=== PATIENT | female | born 1990 ===

== ENCOUNTER 2023-05-11 13:12 | Outpatient (REF) | payer MEDICAID, OTHER, SELFPAY ==
[2023-05-16 04:24] LABS: HPV mRNA E6/E7 rflx Not Detected (Not Detected)
== END 2023-05-11 13:13 | disposition home or self-care (01) ==
LOC: HO.HHCLNP 13:12
PROVIDERS: Visit Provider Advanced Practice Midwife
DX: Z01.419 Encounter for gynecological examination (general) (routine) without abnormal findings (principal)
CPT/HCPCS: 87624; 88142

== ENCOUNTER 2024-01-10 12:43 | Emergency (ER) | payer MEDICAID, OTHER, SELFPAY ==
[2024-01-10 12:57] VITALS: BP 109/69; PULSE 79; RESP 19; TEMP 36.6; O2SAT 98; BMI 23.1
--- NOTE | 2024-01-10 12:57 | ED_ITS ---
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 (all interactions with this patient were facilitated with an [facility] enterprise architect manager.) Mode of arrival: ambulatory Limitations: language barrier (all interactions with this patient were facilitated with an [facility] enterprise architect manager.) History of Present Illness ED Provider: Yessica Ching PA-C HPI Narrative: Patient is a 33 year old assigned female at with a history of vaginal delivery in 2019 in [facility] presenting to the emergency department today with left lower vaginal pain and bleeding. Patient states that she shaved yesterday and noticed last night that she was bleeding from her lower vaginal area and is having pain. Patient states that she had an episiotomy in 2019 and is concerned they closed her up incorrectly. Patient states that she does not have an OBGYN in the area. Patient denies any dizziness, lightheadedness, abdominal pain, nausea, vomiting, fever, chills, blurry vision, double vision, loss of vision, chest pain, difficulty breathing, shortness of breath, back pain, night sweats, pain with urination, increased urinary frequency, increased urinary urgency, blood in her stool, syncope or a near syncopal episode, recent trauma or falls, bowel incontinence, bladder incontinence, or any other complaints at this time. Exacerbating factors: none Relieving factors: none Related Data Previous Rx's ?Medication ?Instructions ?Recorded cefuroxime axetil 250 mg tablet 250 mg PO BID 7 days #14 tabs 01/10/24 Allergies Allergy/AdvReac Type Severity Reaction Status Date / Time sulfamethoxazole Allergy Hives Verified 01/10/24 13:00 [From Bactrim] trimethoprim [From Bactrim] Allergy Hives Verified 01/10/24 13:00 Review of Systems 2 Constitutional: Constitutional: Reports no additional constitutional complaints, Denies chills, Denies fever(s) and Denies night sweats Eyes: Eyes: Reports no additional eye complaints, Denies blurry vision, Denies change in vision, Denies diplopia, Denies eye discharge, Denies loss of vision and Denies eye pain ENT: Denies dizziness Cardiovascular: Cardiovascular: Reports no additional cardiovascular complaints, Denies chest pain, Denies lightheadedness, Denies Loss of Consciousness and Denies dyspnea Respiratory: Respiratory: Reports no additional respiratory complaints and Denies dyspnea Gastrointestinal: Gastrointestinal: Reports no additional gastrointestinal complaints, Denies abdominal pain, Denies melena, Denies hematochezia, Denies change in bowel habits and Denies change in stool character Genitourinary: Genitourinary: Denies urinary frequency, Denies dysuria, Denies urinary incontinence, Denies urinary hesitancy and Denies urinary urgency C omments: vaginal bleeding, left sided lower vaginal pain Musculoskeletal: Musculoskeletal: Reports no additional musculoskeletal complaints, Denies numbness and Denies tingling Neurologic: Denies dizziness, Denies loss of vision, Denies numbness and Denies tingling Psychiatric: Psychiatric: Reports no additional psychiatric complaints Endocrine: Endocrine: Reports no additional endocrine complaints Hematologic/Lymphatic: Hematologic/Lymphatic: Reports no additional hematologic/lymphatic complaints Allergic/Immunologic: Allergic/Immunologic: Reports no additional allergic/immunologic complaints PMFSH Past Medical History Attestation statement: The following information was validated with the patient. Source: old records reviewed and nursing notes reviewed Social History Social History Smoked in Last 30 Days: No Use of substances other than those prescribed or required for medical reasons: No Advance Directives: No Advance Directives Information Provided: No Do you have a plan to hurt others: No Plan Physical Exam 2 Vital Signs: Vital Signs: Last Vital Signs Temp 97.6 F 01/10/24 18:02 Pulse 81 01/10/24 18:02 Resp 18 01/10/24 18:02 BP 113/69 01/10/24 18:02 Pulse Ox 100 01/10/24 18:02 O2 Del Method Room Air 01/10/24 18:02 BMI result Body Mass Index 23.1 Const: General: cooperative, no acute distress, alert and awake Nutritional Appearance: well nourished Orientation/consciousness: patient oriented x3 Limitations: no limitations HEENT: Head: Yes normal to inspection and Yes atraumatic Ears: hearing grossly normal bilaterally and external ears normal General nose exam: Normal external nose present, no nasal discharge noted and no epistaxis Face and sinus: Yes normal facial exam, No abrasion and No laceration Mouth: Normal oral and palatal mucosa present, no drooling and no muffled voice Eyes: General: appearance normal, both eyes and all related structures P eriorbital: periorbital findings normal Eyelids: Yes eyelids normal C onjunctivae: conjunctivae normal Pupils: Equal, round and reactive pupils present EOM: EOMs intact bilaterally Neck: Neck: Yes normal visual inspection, Yes full ROM and Yes no lymphadenopathy Chest: Chest palpation & inspection: normal inspection of the chest Resp: Effort & Inspection: normal respiratory effort and able to speak in complete sentences GI: Inspection: Yes normal to inspection : Other: abrasion vs. lesion present to the left lower inner vaginal lips with small amounts of blood noted in the underwear Neuro: General: patient oriented x3 and moves all extremities Cranial nerves: Yes Equal, round and reactive pupils present Cognition (Neuro): n ormal cognition Extrem: General: Yes normal to inspection, Yes full ROM and Yes capillary refill normal Psych: Appearance: grossly normal Mental Status: mental status grossly normal Affect: normal affect Attitude: cooperative Thought process: N ormal thought process present Thought content: Normal thought content present Insight: Good insight present (Psych) Course Course Course Narrative: This is a Rapid Medical Examination (RME) performed by Krish Olmstead PA-C in triage. Full HPI, ROS, assessment and treatment plan per primary provider in the Main ED. 33 yo female hx of episiotomy during vaginal 5 yrs ago here for eval of vaginal bleeding since last night. believes the incision from 5 years ago re- opened while shaving her vaginal area in the shower last night. endorses assoc burning pain. she initially thought she was on her period but states this feels different. LMP 06/2022 after placement of nexplanon. denies chance of preg. no thinners. + area not examined in triage Plan: basic labs, hcg, UA Medical Decision Making Medical Decision Making MDM Narrative: Patient is a 33 year old assigned female at with a history of vaginal delivery in 2019 in [facility] presenting to the emergency department today with left lower vaginal pain and bleeding. Patient's physical exam was as noted in the physical exam portion of this note. Patient's lesion is not a laceration and does not require manual closure. Patient's blood work was unremarkable. Patient's urine showed a possible UTI, given her presentation - will treat. I spoke to Dr. Sagastume who agreed to see the patient in clinic on 01/11/2024. I explained my physical exam findings as well as all test results to the patient. I answered all questions asked by the patient. I stressed the importance of the patient taking her medication as directed (either prescribed or as the over the counter packaging recommends). I stressed the importance of the patient following up with her primary care provider and with Dr. Sagastume on 01/11/2024. I stressed the importance of the patient returning to the emergency department immediately if her symptoms were to worsen or if she were to develop any dizziness, shortness of breath, difficulty breathing, chest pain, blurry vision, loss of vision, nausea, vomiting, abdominal pain, fever, chills, back pain, or any other complaints. Patient verbalized agreement and understanding with this treatment plan and discharge. Differential Diagnosis Differential Diagnoses: The differential diagnosis associated with the presentation includes UTI Vaginal bleeding Abnormal vaginal lesion Admission/Observation Consideration of admission/observation: Escalation of care including admission/observation considered Patient would have been admitted to the hospital had her work up had any findings where hospital admission was appropriate and her clinical presentation warranted hospital admission. Consult Healthcare Provider Management of the patient was discussed with: Software Recruiter (spoke to Dr. Sagastume as noted in the MDM Rationale portion of this note.) Lab Data [facility] Lab Attestation statement: I reviewed the patient's lab results. My interpretation of these results are in the MDM Rationale portion of this note. 01/10/24 15:48 01/10/24 15:48 Labs: Lab Results 01/10/24 01/10/24 01/10/24 Range/Units 15:48 16:17 17:05 WBC 7.2 (4.8-10.8) X10*3/uL RBC 4.32 (4.20-5.50) X10*6/uL Hgb 13.4 (12.0-16.0) g/dl Hct 40.7 (37.0-47.0) % MCV 94.2 (80.0-98.0) fL MCH 31.0 (27.0-33.0) pg MCHC 32.9 (31.0-35.0) g/dl RDW 12.3 (11.0-16.0) % Plt Count 253 (160-400) X10*3/uL MPV 10.4 (9.4-12.3) fL Immature Gran % (Auto) 0.3 (0.0-0.4) % Neut % (Auto) 58.3 (45-73) % Lymph % (Auto) 32.2 (20-40) % Thayer % (Auto) 6.8 (2-11) % Eos % (Auto) 2.1 (0-4) % Baso % (Auto) 0.3 (0-2) % Lymph # (Auto) 2.3 (1.2-4.9) X10*3/uL Thayer # (Auto) 0.5 (0.1-1.2) X10*3/uL Eos # (Auto) 0.2 (0.0-0.4) X10*3/uL Baso # (Auto) 0.0 (0.0-0.2) X10*3/uL Abs Immat Gran (auto) 0.02 (0.00-0.03) X10*3/uL Absolute Neuts (auto) 4.2 (2.0-8.3) x10*3/uL Absolute Nucleated RBC 0.000 (0.0-0.012) X10*3/uL Nucleated RBC % (auto) 0.0 (0.0-0.2) /100WBC Sodium 142 (135-145) mmol/L Potassium 4.3 (3.3-5.1) mmol/L Chloride 107 (96-108) mmol/L Carbon Dioxide 27 (22-29) mmol/L Anion Gap 12 (12-20) BUN 13 (9-16) mg/dL Creatinine 0.82 (0.5-1.4) mg/dL Estim Creat Clear Calc 98.4 Estimated GFR > 60 Random Glucose 93 (60-115) mg/dL Calcium 9.3 (8.4-10.2) mg/dL Total Bilirubin 0.8 (0.0-1.0) mg/dL AST 17 (5-31) U/L ALT 13 (0-31) U/L Alkaline Phosphatase 53 (39-117) U/L Total Protein 7.6 (6.5-8.0) g/dL Albumin 4.4 (3.5-5.0) g/dL Beta HCG, Quant < 2 mIU/mL Urine Color Yellow Urine Appearance Cloudy Urine pH 6.0 (5.0-9.0) Ur Specific [place] 1.020 (1.005-1.025) Urine Protein Negative (Neg-Trace) mg/dL Urine Glucose (UA) Negative (Negative) mg/dL Urine Ketones Trace (Negative) mg/dL Urine Blood Large (3+) H (Negative) Urine Nitrite Positive H (Negative) Ur Leukocyte Esterase Small (1+) H (Negative) Urine RBC 11-20 H (0-2) /HPF Urine WBC 6-10 H (0-5) /HPF Ur Squamous Epith Cells 11-20 (0-2) /HPF Urine Bacteria 4+ (None Seen) Hyaline Casts 0-2 (0-2) /LPF Urine Test NEGATIVE (NEGATIVE) Chlam trachomat DNA PCR NOT DETECTED (Not Detect.) N.gonorrhoeae DNA (PCR) NOT DETECTED (Not Detect.) Prescription Management I considered prescription management with: Antibiotic (patient prescribed an antibiotic for possible UTI) Discharge Plan Discharge Clinical Impression: Avulsion of skin, UTI (urinary tract infection) Patient Disposition: Home, Self-Care Instructions: Urinary Tract Infection in Women (DC), Skin Avulsion (ED) Additional Instructions: You MUST follow up with an OBGYN. Take your medication as prescribed. Leave the affected area alone. Follow up with your primary care provider. Return to the emergency department immediately if your symptoms worsen or if you develop any dizziness, shortness of breath, difficulty breathing, chest pain, blurry vision, loss of vision, nausea, vomiting, abdominal pain, fever, chills, back pain, or any other complaints. DEBE hacer un seguimiento con un ginec?logo obstetra. Shields la medicaci?n moise y amira se le mccarty recetado. Deje en bartlett la ramu afectada. Consulte a suarez m?dico de cabecera. Acuda inmediatamente al servicio de urgencias si eliza s?ntomas empeoran o si presenta mareos, falta de aliento, dificultad para respirar, dolor tor?cico, visi?n borrosa, p?rdida de visi?n, n?useas, v?mitos, dolor abdominal, fiebre, escalofr?os, dolor de espalda o cualquier otra molestia. Prescriptions: New cefuroxime axetil 250 mg tablet 250 mg PO BID 7 Days Qty: 14 0RF Referrals: [facility] Family Medicine [Provider Group] (Call to establish and follow up with a primary care provider. If you already have a primary care provider, please follow up with them. Llame para establecer y hacer un seguimiento con un proveedor de atenci?n primaria. Si ya tiene un proveedor de atenci?n primaria, mare un seguimiento con ?l.) [facility] [Provider Group] (Call to establish and follow up with a primary care provider. If you already have a primary care provider, please follow up with them. Llame para establecer y hacer un seguimiento con un proveedor de atenci?n primaria. Si ya tiene un proveedor de atenci?n primaria, mare un seguimiento con ?l.) [facility] Primary [facility] [Provider Group] (Call to establish and follow up with a primary care provider. If you already have a primary care provider, please follow up with them. Llame para establecer y hacer un seguimiento con un proveedor de atenci?n primaria. Si ya tiene un proveedor de atenci?n primaria, mare un seguimiento con ?l.) Gaurav Sagastume MD [Physician] - (Call the morning of 01/11/2024 (TOMORROW) and ask for Carolina. They are expecting your call and will get you into the office TOMORROW (01/11/2024). Llame la ma?teofilo del 11/01/2024 (MA?TEOFILO) y pregunte por Carolina. Est?n esperando tu llamada y te llevar?n a la oficina MA?TEOFILO (11/01/2024). ) Stand Alone Forms: Work/School Release Interventions: ED Discharge Assessment Last Done: 01/10/24 18:02 Discharge Date/Time: 01/10/24 18:02 Print Language: Frisian
[2024-01-10 15:55] LABS: MANUAL DIFF FLAG NO
[2024-01-10 15:58] LABS: Basophils Percent Auto 0.3 % (0-2); Eosinophils Absolute Auto 0.2 X10*3/uL (0.0-0.4); Eosinophils Percent Auto 2.1 % (0-4); Hematocrit 40.7 % (37.0-47.0); Hemoglobin 13.4 g/dl (12.0-16.0); Imm Gran Abs Auto 0.02 X10*3/uL (0.00-0.03); Imm Gran Pct Auto 0.3 % (0.0-0.4); Lymphocytes Absolute Auto 2.3 X10*3/uL (1.2-4.9); Lymphocytes Percent Auto 32.2 % (20-40); Mean Corpuscular HGB Conc 32.9 g/dl (31.0-35.0); Mean Corpuscular Volume 94.2 fL (80.0-98.0); Mean Platelet Volume 10.4 fL (9.4-12.3); Monocytes Absolute Auto 0.5 X10*3/uL (0.1-1.2); Monocytes Percent Auto 6.8 % (2-11); Neutrophils Absolute Auto 4.2 x10*3/uL (2.0-8.3); Neutrophils Percent Auto 58.3 % (45-73); Platelet Count 253 X10*3/uL (160-400); Red Blood Count 4.32 X10*6/uL (4.20-5.50); Red Cell Distribution Width 12.3 % (11.0-16.0); White Blood Count 7.2 X10*3/uL (4.8-10.8)
[2024-01-10 16:23] LABS: Alanine Aminotransferase 13 U/L (0-31); Albumin Level 4.4 g/dL (3.5-5.0); Alkaline Phosphatase 53 U/L (39-117); Anion Gap 12 (12-20); Aspartate Amino Transferase 17 U/L (5-31); Bilirubin Total 0.8 mg/dL (0.0-1.0); Blood Urea Nitrogen 13 mg/dL (9-16); Calcium 9.3 mg/dL (8.4-10.2); Carbon Dioxide 27 mmol/L (22-29); Chloride 107 mmol/L (96-108); Creatinine Clr Calc Pharmacy 98.4; Estimated Glomerular Filt Rate > 60; Glucose Random 93 mg/dL (60-115); Potassium 4.3 mmol/L (3.3-5.1); Sodium 142 mmol/L (135-145); Total Protein 7.6 g/dL (6.5-8.0)
[2024-01-10 16:29] LABS: Appearance Urine Cloudy; Color Urine Yellow; Glucose Urine UA Negative (Negative); Leukocyte Esterase Urine Small (1+) (Negative); Nitrite Urine Positive (Negative); UMIC TRIGGER UACC YES; Urine Blood Large (3+) (Negative); Urine Ketones Trace mg/dL (Negative); Urine Protein Negative (Neg-Trace)
[2024-01-10 16:29] LABS: HCG Quantitative < 2 mIU/mL
[2024-01-10 16:31] LABS: UPreg QC Valid YES; Urine Pregnancy NEGATIVE (NEGATIVE)
[2024-01-10 16:34] VITALS: BP 113/69; PULSE 81; RESP 18; TEMP 36.4; O2SAT 100
[2024-01-10 16:35] LABS: Bacteria Urine 4+ (None Seen); Hyaline Casts Urine 0-2 /LPF (0-2); UACC Culture Trigger YES
--- NOTE | 2024-01-10 17:57 | PC.NURSE ---
karley made aware of DC instructions aware she has to call [facility] women services tomorrow and make an appointment.
[2024-01-10 18:02] VITALS: BP 113/69; PULSE 81; RESP 18; TEMP 36.4; O2SAT 100
[2024-01-11 03:54] LABS: CT PCR NOT DETECTED (Not Detect.); NG PCR NOT DETECTED (Not Detect.)
[2024-01-11 11:28] LABS: Bacterial Vaginosis PCR POSITIVE (Negative); Candida Group PCR NOT DETECTED (Not Detect); Candida glab krusei PCR NOT DETECTED (Not Detect); Trichomonas vaginalis PCR NOT DETECTED (Not Detect)
== END 2024-01-10 18:02 | disposition home or self-care (01) ==
PROVIDERS: Physician Assistant Medical; Emergency Provider Emergency Medicine
DX: S31.104A Unspecified open wound of abdominal wall, left lower quadrant without penetration into peritoneal cavity, initial encounter (principal); W27.8XXA Contact with other nonpowered hand tool, initial encounter; R10.2 Pelvic and perineal pain; Y93.E8 Activity, other personal hygiene; Y92.012 Bathroom of single-family (private) house as the place of occurrence of the external cause; Y99.9 Unspecified external cause status
CPT/HCPCS: 0352U; 36415; 80053; 81001; 81025; 84702; 85025; 87086; 87088; 87186; 87491; 87591; 99283; 99284

== ENCOUNTER 2024-01-11 10:35 | Outpatient (AMB) | payer SELFPAY ==
[2024-01-11 11:03] VITALS: BP 100/60; BMI 22.8
--- NOTE | 2024-01-11 11:03 | A.OFFVIS_ITS ---
Vital Signs 01/11/24 11:03 Height 5 ft 8 in Weight 150 lb BMI 22.8 BP 100/60 Intake Visit Reasons: Er follow up per Cushion Cover Inspector Required: Yes Cushion Cover Inspector Language: Telemetry Nurse Services: Cushion Cover Inspector Present (in person) Cushion Cover Inspector Name: Lita JACOB Information Interpreted: non-clinical & clinical Mechanical System Technician: Mechanical System Technician Present (Lita JACOB) Accompanied by: Self / Same As Patient Allergies sulfamethoxazole [From Bactrim] Allergy (Verified 01/11/24 11:04) Hives trimethoprim [From Bactrim] Allergy (Verified 01/11/24 11:04) Hives Is last menstrual period known: Yes Last menstrual period: 01/09/24 HPI Comments Details: Presenting complaining of perineal pain started after intercourse 4 days ago no other associated PFSH Surgical History Hx of tonsillectomy Social History Household Members Other:: daughter Housing Other:: nursing home Alcohol intake: current Alcohol intake frequency: a few times a month Patient Tobacco Use Status: Never used Tobacco Current occupational status: unemployed Sexually active: No Sexual orientation: Straight/Heterosexual Gender identity: Female Female Reproductive History Menstrual Date of last menstrual period: 01/09/24 Total pregnancies: 3 Full term: 2 Number of Living Children: 2 Ab spontaneous: 1 Review of Systems Const All systems reviewed & are unremarkable except as noted in HPI and below Physical Exam Vital Signs: Last Vital Signs BP 100/60 01/11/24 11:03 BMI result Body Mass Index 22.8 General: Yes no CVA tenderness External Female Exam: normal appearance of the urethra and other (Posterior fourchette superficial laceration at the site of episiotomy) Speculum Exam - Vagina: normal appearance of the vagina, normal palpation, no lesions and no masses Speculum Exam - Cervix: normal appearance of the cervix, normal palpation, no lesions, no masses and nontender Bimanual exam- vagina & uterus: normal bimanual exam, normal palpation, uterine size normal, normal palpation, uterine shape normal, No Cervical tenderness present and non-tender Bimanual Exam- Adnexa, other: normal adnexae Back/Spine/Pelvis Back: no CVA tenderness Assessment & Plan Assessment & Plan (1) Perineal laceration involving skin: Code(s): S31.41XA - Laceration without foreign body of vagina and vulva, initial encounter Category: Medical Plan: GC/CT with BV panel collected Laceration wound culture and herpes culture taken Augmentin 875 p.o. b.i.d. for 7 days given to the patient Wet and dry gauzes and Sitz baths recommended the patient Instructions given the patient to call in case of worsening of the pain, discharge, fever change in skin color otherwise schedule a 2 week follow-up appointment for reinspection Medications: New amoxicillin-pot clavulanate 875-125 mg 1 tab PO BID 7 days 14 tabs 0RF Coding Level of Care Code New Pt Level 3 (38950) Diagnoses Perineal laceration involving skin S31.41XA
== END 2024-01-11 11:24 | disposition home or self-care (01) ==
LOC: HO.HWS 10:35
PROVIDERS: Visit Provider Obstetrics & Gynecology
DX: S31.41XA Laceration without foreign body of vagina and vulva, initial encounter (principal)
CPT/HCPCS: 99203

== ENCOUNTER 2024-01-11 11:26 | Outpatient (REF) | payer MEDICAID, OTHER, SELFPAY | END 2024-01-11 11:27 | disposition home or self-care (01) | LOC: HO.LAB 11:26 | PROVIDERS: Visit Provider Obstetrics & Gynecology | DX: Z13.89 Encounter for screening for other disorder (principal) ==

== ENCOUNTER 2025-02-04 12:46 | Emergency (ER) | payer MEDICAID, SELFPAY ==
--- NOTE | ~2025-02-04 | CT_ITS ---
CLINICAL HISTORY: left flank pain, hx of stones CT abdomen and pelvis without contrast Comparison: None provided Findings: The lung bases are clear. The liver, spleen, pancreas, bilateral adrenal glands and right kidney without acute abnormality or focal lesions. Gallbladder nondistended. Tiny radiopaque gallstone within the gallbladder lumen. There is a nearly 4 mm stone in the distal left ureter a few cm proximal to the left ureterovesical junction, axial image 68, series 3, coronal image 39. This results in mild left-sided hydroureteronephrosis. Few additional punctate nonobstructive bilateral intrarenal stones are noted. The stomach and bowel loops are not dilated. There are no focal colonic lesions or pneumatosis. There is no mesenteric inflammation. The appendix is normal. No free fluid, collections or free air. The aorta normal in caliber No abdominopelvic lymphadenopathy. The bladder is normal. Uterus slightly prominent although without gross focal lesions. There are no adnexal lesions. There is no acute soft tissue or skeletal abnormality in the abdomen or pelvis. There are no skeletal lesions. IMPRESSION: A 4 mm stone in the distal left ureter, resulting in mild left-sided hydroureteronephrosis. The examination is otherwise unremarkable. This document has been electronically signed by: Luis Pichardo MD on 02/04/2025 19:14:56
[2025-02-04 13:01] VITALS: BP 119/58; PULSE 70; RESP 20; TEMP 36.3; O2SAT 100
--- NOTE | 2025-02-04 13:02 | ED.GENADULT ---
HPI - General Adult General Chief complaint: Abdominal Pain Stated complaint: Urinary Symptoms Time Seen by Provider: 02/04/25 18:09 Source: patient Mode of arrival: ambulatory Limitations: no limitations History of Present Illness ED Provider: DR. Can HPI narrative: 34-year-old female history of kidney stones presented with left flank pain radiates down to the left groin area, dysuria, urge to urinate, no blood in the urine, no fever, no chills, no nausea, no vomiting. Normal bowel movement this morning, +passing gas, no blood in the stool. Related Data Previous Rx's ?Medication ?Instructions ?Recorded cefuroxime axetil 250 mg tablet 250 mg PO BID 7 days #14 tabs 01/10/24 amoxicillin 875 mg-potassium 1 tab PO BID 7 days #14 tabs 01/11/24 clavulanate 125 mg tablet cefuroxime axetil 250 mg tablet 250 mg PO BID #14 tabs 02/04/25 ibuprofen 600 mg tablet 600 mg PO Q8H PRN pain #10 tabs 02/04/25 oxycodone 5 mg tablet 5 mg PO BID PRN pain #7 tabs 02/04/25 Allergies Allergy/AdvReac Type Severity Reaction Status Date / Time sulfamethoxazole (From Allergy Hives Verified 02/04/25 13:04 Bactrim) trimethoprim (From Bactrim) Allergy Hives Verified 02/04/25 13:04 Review of Systems Review of Systems: All other systems are reviewed and are negative Constitutional: Reports as per HPI and Reports no additional constitutional complaints Eyes: Reports as per HPI and Reports no additional eye complaints Reports system reviewed and no additional complaints, except as documented Cardiovascular: Reports as per HPI and Reports no additional cardiovascular complaints Respiratory: Reports as per HPI and Reports no additional respiratory complaints Gastrointestinal: Reports as per HPI and Reports no additional gastrointestinal complaints Genitourinary: Reports no additional female genitourinary complaints Musculoskeletal: Reports no additional musculoskeletal complaints Skin/Breast: Reports system reviewed and no additional complaints, except as docu Psychiatric: Reports no additional psychiatric complaints Endocrine: Reports no additional endocrine complaints Hematologic/Lymphatic: Reports no additional hematologic/lymphatic complaints Allergic/Immunologic: Reports no additional allergic/immunologic complaints Reports system reviewed and no additional complaints, except as documented and Reports Abnormal speech present [facility] Past Medical History Surgical History Hx of tonsillectomy Social History Social History Household Members Other:: daughter Housing Other:: penitentiary Alcohol intake: current Alcohol intake frequency: a few times a month Patient Tobacco Use Status: Never used Tobacco Smoked in Last 30 Days: No Use of substances other than those prescribed or required for medical reasons: No Advance Directives: No Advance Directives Information Provided: Yes Do you have a plan to hurt others: No Plan Patient : No Current occupational status: unemployed Sexual orientation: Straight/Heterosexual Gender identity: Female Physical Exam ED Vital Signs: Vital Signs - 24 hr 02/04/25 13:01 02/04/25 18:52 Temperature 97.3 F 97.2 F Pulse Rate 70 58 Respiratory Rate 20 14 Blood Pressure 119/58 L 116/72 Pulse Oximetry 100 99 Oxygen Delivery Method Room Air Room Air BMI result Body Mass Index 30.0 Vital signs have been reviewed and appear to be correct. Blood pressure elevated. Heart rate normal. Respiratory rate normal. Temperature normal. Oxygen saturation normal. Appearance: Alert. Oriented X3. No acute distress. Head: Normal external exam. Normocephalic. Atraumatic. No Nguyen signs noted. No raccoon eyes noted Eyes: PERRLA. EOMI. Conjunctiva and sclera normal. Eyelids normal. ENT: TM's Normal. Pharynx normal. Uvula midline. Moist mucous membranes. No trismus noted. No drooling noted. No muffled voice noted. Neck: Normal inspection. Neck supple. FROM. No adenopathy. Thyroid Normal. No meningeal signs. No neck mass noted. CVS: Normal heart rate and rhythm. Heart sound normal. No murmurs noted. Pulses normal throughout. Respiratory: No respiratory distress. Painless inspiration. Breath sounds normal. No wheezes/rales/rhonchi noted. Chest nontender. No accessory muscle usage noted or decreased air movement noted. Abdomen: Soft, left lower quadrant abdominal tenderness, no guarding, No distention noted. No organomegaly noted. No visible injury noted. Back: +left CVA tenderness. No step-off, no deformity. Skin: Skin warm and dry. Normal skin color. Normal skin turgor. No rashes/lesions/lacerations noted. Extremities: No lower extremity edema. Extremities exhibit normal range of motion. Extremities nontender. Neuro: Oriented X 3. Cranial nerve exam: II-XII are grossly intact No motor deficit. No sensory deficit. Reflexes normal. Course Course Course Narrative: This is a rapid medical exam performed by Leelee Jones NP: Additional HPI, ROS, PE not included below will be deferred to primary provider. Patient is a 34y/o Estonian speaking female presenting with complaint of left flank pain since last night. Today pain worsened, radiates to abdomen with nausea. Urinary frequency, only going small amounts. Plan: Labs, UA Reevaluation(s) Reevaluation #1: Presented with dysuria, frequency urination, any urinary urgency UA is showing small blood and trace of leuko esterase, CT abdomen pelvis is negative for obstructive uropathy, patient was instructed to drink plenty of fluids and compliant with her antibiotic. CT is consistent with 4 mm obstructing stone in distal left ureter, patient was instructed to drink plenty of fluids, follow-up with urology, will discharge with pain medication. Time: 19:30 Medications Administered Discontinued Medications Generic Name Dose Route Start Last Admin Trade Name Freq PRN Reason Stop Dose Admin Cefuroxime Axetil 250 mg 02/04/25 18:32 02/04/25 18:55 Cefuroxime Axetil 250 Mg Tablet PO 02/04/25 18:33 250 mg ONCE ONE Administration Medical Decision Making Differential Diagnosis Differential Diagnoses: The differential diagnosis associated with the presentation includes (Obstructive uropathy, muscular flank pain, UTI, pyelonephritis, colitis, diverticulitis, pancreatitis.) Admission/Observation Consideration of admission/observation: Escalation of care including admission/observation considered Lab Data [facility] Lab Attestation statement: I reviewed the patient's lab results. 02/04/25 13:17 02/04/25 13:17 Labs: Lab Results 02/04/25 02/04/25 Range/Units 13:17 13:37 WBC 6.6 (4.8-10.8) X10*3/uL RBC 4.17 L (4.20-5.50) X10*6/uL Hgb 12.8 (12.0-16.0) g/dl Hct 39.3 (37.0-47.0) % MCV 94.2 (80.0-98.0) fL MCH 30.7 (27.0-33.0) pg MCHC 32.6 (31.0-35.0) g/dl RDW 12.9 (11.0-16.0) % Plt Count 243 (160-400) X10*3/uL MPV 9.9 (9.4-12.3) fL Immature Gran % (Auto) 0.3 (0.0-0.4) % Neut % (Auto) 56.5 (45-73) % Lymph % (Auto) 32.5 (20-40) % [place] % (Auto) 7.8 (2-11) % Eos % (Auto) 2.4 (0-4) % Baso % (Auto) 0.5 (0-2) % Lymph # (Auto) 2.1 (1.2-4.9) X10*3/uL Henderson # (Auto) 0.5 (0.1-1.2) X10*3/uL Eos # (Auto) 0.2 (0.0-0.4) X10*3/uL Baso # (Auto) 0.0 (0.0-0.2) X10*3/uL Abs Immat Gran (auto) 0.02 (0.00-0.03) X10*3/uL Absolute Neuts (auto) 3.7 (2.0-8.3) x10*3/uL Absolute Nucleated RBC 0.000 (0.0-0.012) X10*3/uL Nucleated RBC % (auto) 0.0 (0.0-0.2) /100WBC Sodium 139 (135-145) mmol/L Potassium 4.4 (3.3-5.1) mmol/L Chloride 107 (96-108) mmol/L Carbon Dioxide 26 (22-29) mmol/L Anion Gap 10 L (12-20) BUN 13 (9-16) mg/dL Creatinine 0.90 (0.5-1.4) mg/dL Estim Creat Clear Calc 91.1 Estimated GFR > 60 Random Glucose 101 (60-115) mg/dL Calcium 9.2 (8.4-10.2) mg/dL Total Bilirubin 0.4 (0.0-1.0) mg/dL AST 23 (5-31) U/L ALT 21 (0-31) U/L Alkaline Phosphatase 54 (39-117) U/L Total Protein 7.3 (6.5-8.0) g/dL Albumin 4.3 (3.5-5.0) g/dL Beta HCG, Quant < 2 mIU/mL Urine Color Yellow Urine Appearance Clear Urine pH 6.5 (5.0-9.0) Ur Specific [place] <= 1.005 (1.005-1.025) Urine Protein Negative (Neg-Trace) mg/dL Urine Glucose (UA) Negative (Negative) mg/dL Urine Ketones Negative (Negative) mg/dL Urine Blood Small (1+) H (Negative) Urine Nitrite Negative (Negative) Ur Leukocyte Esterase Trace H (Negative) Urine RBC 0-2 (0-2) /HPF Urine WBC 0-5 (0-5) /HPF Ur Squamous Epith Cells 0-2 (0-2) /HPF Urine Bacteria None Seen (None Seen) Hyaline Casts 0-2 (0-2) /LPF Independent Interpretation I performed an independent interpretation of an: CT Scan (Abdomen pelvis:) Discharge Plan Discharge Clinical Impression: Urinary tract infection, Calculi, ureter Patient Disposition: Home, Self-Care Instructions: Urinary Tract Infection in Women (ED) Prescriptions: New cefuroxime axetil 250 mg tablet 250 mg PO BID Qty: 14 0RF ibuprofen 600 mg tablet 600 mg PO Q8H PRN (Reason: pain) Qty: 10 0RF oxycodone 5 mg tablet 5 mg PO BID PRN (Reason: pain) Qty: 7 0RF Rx Instructions: Partial Fill upon patient request. No Action cefuroxime axetil 250 mg tablet 250 mg PO BID 7 Days Qty: 14 0RF amoxicillin-pot clavulanate 875-125 mg tablet 1 tab PO BID 7 Days Qty: 14 0RF Referrals: Alexx Winters MD [Physician, Urology] Agustina Benavides MD [Primary Care Provider, Internal Medicine] Print Language: Estonian
[2025-02-04 13:20] LABS: MANUAL DIFF FLAG NO
[2025-02-04 13:27] LABS: Hematocrit 39.3 % (37.0-47.0); Hemoglobin 12.8 g/dl (12.0-16.0); Imm Gran Abs Auto 0.02 X10*3/uL (0.00-0.03); Imm Gran Pct Auto 0.3 % (0.0-0.4); Lymphocytes Absolute Auto 2.1 X10*3/uL (1.2-4.9); Mean Corpuscular HGB Conc 32.6 g/dl (31.0-35.0); Mean Corpuscular Hemoglobin 30.7 pg (27.0-33.0); Mean Corpuscular Volume 94.2 fL (80.0-98.0); NRBC Abs Auto 0.000 X10*3/uL (0.0-0.012); NRBC Pct Auto 0.0 /100WBC (0.0-0.2); Platelet Count 243 X10*3/uL (160-400); Red Blood Count 4.17 X10*6/uL (4.20-5.50); White Blood Count 6.6 X10*3/uL (4.8-10.8)
[2025-02-04 13:43] LABS: Alanine Aminotransferase 21 U/L (0-31); Albumin Level 4.3 g/dL (3.5-5.0); Alkaline Phosphatase 54 U/L (39-117); Anion Gap 10 (12-20); Aspartate Amino Transferase 23 U/L (5-31); Blood Urea Nitrogen 13 mg/dL (9-16); Calcium 9.2 mg/dL (8.4-10.2); Carbon Dioxide 26 mmol/L (22-29); Chloride 107 mmol/L (96-108); Creatinine Clr Calc Pharmacy 91.1; Estimated Glomerular Filt Rate > 60; Potassium 4.4 mmol/L (3.3-5.1); Sodium 139 mmol/L (135-145); Total Protein 7.3 g/dL (6.5-8.0)
[2025-02-04 13:46] LABS: Appearance Urine Clear; Glucose Urine UA Negative (Negative); PH 6.5 (5.0-9.0); Specific Gravity - Urine <= 1.005 (1.005-1.025); UMIC TRIGGER UACC YES
--- OUTSIDE RECORDS SUMMARY | 2025-02-04 18:43 | XMS_ITS | Encounter Summary ---
Author Organization [employer] Address [address] [facility] [address] [place] [address] Care Team Providers Care Credentialing Coordinator Name Role Phone Agustina Benavides MD Primary Care Pro vider Reason for Visit * Reason Onset Date Comments New Patient 01/19/2023 Encounter Details Date Type Department Care Team ([facility] st Contact Info) Description 01/19/2023 Telephone [facility] MEDICINE [address] [place], [place] [phone] Mp Waller MD [address] [place] [address] New Patient Social History Tobacco Use Types Packs/Day Years Used Date Smoking Tobacco: Never Assessed Comments Unknown Sex and Gender Information Value Date Recorded Sex Assigned at Female 03/23/2023 11:06 AM EST Legal Sex Female 3:14 PM EDT Gender Identity Choose not to disclose 10:41 AM EST Sexual Orientation Straight 03/23/2023 11 :06 AM EST documented as of this encounter Miscellaneous Notes * Telephone Encounter - Mc Castillo - 01/19/2023 3:21 PM EDT PAR Mc Laura called pt to Offer PHARMACIST ASSISTANT appt. Pt demographics and insurance information were verified. Pt states following medical conditions: No Pt reports taking medications: No Pt given PHARMACIST ASSISTANT appt with Dr. Christensen on 03/23/2023 @ 10:15 pm. Pt will be sent appt reminder card and medical release formand agrees to complete and to return to medical records prior to PHARMACIST ASSISTANT appt. documented in this encounter Plan of Treatment Upcoming Encounters Date Type Department Care Team (Late st Contact Info) Description 02/12/2025 2:30 PM EST Office Visit [facility] MEDICINE [address] [place] [phone] Blanca Pascual CNM [address] [place] [address] 04/11/2025 1:30 PM EST Office Visit [facility] [address] [place] [address] Agustina Benavides MD [address] [place], [place] [phone] documented as of this encounter Visit Diagnoses Not on filedocumented in this encounter Care Teams Credentialing Coordinator Relationship Specialty Start Date End Date Agustina Benavides MD [address] [place] [address] [phone] PCP - General Internal Medicine 04/28/23 documented as of this encounter
--- OUTSIDE RECORDS SUMMARY | 2025-02-04 18:43 | XMS_ITS | Encounter Summary ---
Author Organization [email or web address] Address [address] [place] [address] Care Team Providers Care Bevel Face Stoner And Polisher Name Role Phone Agustina Benavides MD Primary Care Pro vider Encounter Details Date Type Department Care Team (Late st Contact Info) Description 04/14/2023 Orders Only [facility] MEDICINE [address] [place], [place] [phone] Blanca Pascual, TIMO [address] [place], [place] [phone] Social History Tobacco Use Types Packs/Day Years Used Date Smoking Tobacco: Never Smokeless Tobacco: Never Alcohol Use Standard Drinks/Week Comments Yes 0 (1 standard drink = 0.6 oz pur e alcohol) sometimes drinks-social Depression Answer Date Recorded Patient Health Questionnaire-9 Score 10 03/23/2023 Patient Health Questionnaire-9 Score 10 03/23/2023 Last PHQ-9: Questionnaire Data Not on file 1 05/24/2022 Housing Stability Answer Date Recorded What is your housing situation today? I do not have housing (Staying with others, in a hotel, in a penitentiary, living outside on the street, on a beach, in a car, or in a park 03/23/[address] you li ve. Do you have problems with any of the following? None of the above 03/23/2023 Food Insecurity Answer Date Recorded Within the past 12 months, y ou worried that your food would run out before you got money to buy more: Sometimes True 2022 Within the past 12 months,th e food you bought just didn't last and you didn't have enough money to get more: Sometimes True 03/23/2023 Transportation Answer Date Recorded In the past 12 months, has l ack of transportation kept you from medical appts, meetings, work or from getting things needed for daily living? No 03/23/2023 Utilities Answer Date Recorded In the past 12 months, has t he electric, gas, oil or water company threatened to shut off services in your home? No 03/23/2023 Depression Answer Date Recorded Patient Health Questionnaire-2 Score 3 03/23/2023 Comments No Sex and Gender Information Value Date Recorded Sex Assigned at Female 03/23/2023 11:06 AM EST Legal Sex Female 3:14 PM EDT Gender Identity Choose not to disclose 10:41 AM EST Sexual Orientation Straight 03/23/2023 11 :06 AM EST documented as of this encounter Plan of Treatment Upcoming Encounters Date Type Department Care Team (Late st Contact Info) Description 02/12/2025 2:30 PM EST Office Visit [facility] MEDICINE [address] [place] [phone] Blanca Pascual, TIMO[address] [phone] 04/11/2025 1:30 PM EST Office Visit [address] [address] Agustina Benavides MD [address] [place] [address] [phone] documented as of this encounter Procedures Procedure Name Priority Date/Time Associated Diagnosis Comments HPV MRNA E6/E7 REFLEX TO HPV 16, 18/45 Routine 05/11/2023 10:00 AM EST documented in this encounter Results * HPV mRNA E6/E7 w/Reflex to HPV Genotypes 16, 18/45 (05/11/2023 10:00 AM EST) HPV nRNA E6/E7 Not Detected Not Detected [facility] Comment:Methodology: Transcr iption-Mediated AmplificationThis assay detects E6/E7 viral messenger RNA (mRNA) from 14high-risk HPV types (16,18,31,33,35,39,45,51,52,56,58,59,66,68).Cervical sources are required for HPV testing.If a vaginal source from a patient who has had atotal hysterectomy with removal of cervix wassubmitted, please contact the testing laboratoryfor alternative testing options.For additional information, please refer [email or web address]/faq/IPM555i4(This link if provided for information/educational purposes only.)THIS TEST WAS PERFORMED AT:[facility] [place] [id number] MONTERROSO MD HPV mRNA E6/E7 [facility] HPV 16 RNA [facility] HPV 18/45 RNA [facility] 05/11/2023 10:0 0 AM EST 05/11/2023 2:00 PM EST us Blanca Pascual [facility] CYTOLOGY ORDERABLES F inal Result [facility] [address] [place] [phone] documented in this encounter Visit Diagnoses Not on filedocumented in this encounter Additional Health Concerns Assessment Noted Time PHQ-9 Depression Total Score: 10 023 12:55 PM EST documented as of this encounter Care Teams Bevel Face Stoner And Polisher Relationship Specialty Start Date End Date Agustina Benavides MD [address] [place] [address] PCP - General Internal Medicine 04/28/23 documented as of this encounter
--- OUTSIDE RECORDS SUMMARY | 2025-02-04 18:43 | XMS_ITS | Clinical Summary ---
Author Organization [employer] Address [address] [facility] 7t [place] [address] Care Team Providers Care Revenue Stamp Cutter Name Role Phone Agustina Benavides MD Primary Care Pro vider Allergies Active Allergy Reactions Criticality Noted Date Comments Sulfamethoxazole-Trimetho prim 03/23/2023 Rash in childhood and adulthood Medications * This document contains information received from the source organization and may not represent a complete record from that organization. multivitamin-iro p-ksiytdsh-wekqa acid (Centrum) chewable tablet Chew 1 tablet in the morning. Active cetirizine (ZyrTEC) 10 MG tablet TAKE 1 TABLET BY MOUTH EVERY DAY 90 tablet 02/16/2024 Active Active Problems Problem Noted Date Diagnosed Date Vulvar lesion 01/26/2024 PTSD (post-traumatic stress disorder) 01/25/2024 Assessment & Plan (01/25/2024 3:52 PM EDT): PROGRESS NOTE: ID: José is a 33 y.o. White straight-identified choose not to disclose with previous documented hx of Depression and Anxiety MH services including OP Psychotherapy who presents for Anxiety, Depression, and PTSD (Post-Traumatic Stress Disorder) During IBH Consult José presenting with depressed mood, Tearful, irritable mood, loss of interests/pleasure , sense of isolation/loneliness , change in appetite or weight reduce appetite, changes in sleep difficulty falling asleep and difficulty staying asleep , fatigue/loss of energy, worthlessness, excessive worry/anxiety, difficulty controlling worry, and anxiety/worry associated to restlessness and/or feeling keyed-up/On edge , easily fatigued , irritability, muscle tension , and sleep disturbance difficulty falling asleep and difficulty staying asleep , and Flashbacks, Intrusive trauma memories and thoughts, Nightmares/night terrors, Hypervigilance, Avoidance of trauma reminders/triggers, and Increased startle response; for a period of 18+ mo, for most or all symptoms in the context of patient moved from [facility],1 year ago, arrived at [facility] bt then on 03/23/23 was transfer to [place], she has been living in retirement with her 5 y/o daughter, financial struggle, lack of social support. 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 José moved to three months ago from [facility] and is currently living with her daughter in a retirement. Lack of support/network and difficult relationship with her daughter's father are also exacerbating sxs. PLAN: (check all that apply) Behavioral Health Integration Plan Internal Follow up with [facility], Patient Self Plan Patient to utilize skills provided in intervention , Patient to reach out to [facility] team as needed, and Patient to reach out to [facility] as needed. Due to lack of coverage for mental health patient will be seeing during medical appointments as needed. CM referral placed to assist with current needs. Housing problems 03/23/2023 Assessment & Plan (03/28/2023 2:56 PM EST): During IBH Consult José presenting with depressed mood, loss of interests/pleasure , changes in sleep difficulty falling asleep, trouble concentrating, thoughts of worthlessness or guilt, inappropriate guilt , worthlessness , difficulty concentrating and excessive worry/anxiety, difficulty controlling worry, restless/keyed up/On edge, and easily fatigued; for a period of 0-6 mo in the context of divorce/separation, recent move, and housing. José moved to [place] three months ago from [facility] and is currently living with her daughter in a retirement. Lack of support/network and difficult relationship with her daughter's father are also exacerbating sxs. PLAN: (check all that apply) Behavioral Health Integration Plan Internal Follow up with I, Patient Self Plan Patient to utilize skills provided in intervention , Patient to reach out to [facility] team as needed, and Patient to reach out to [facility] as needed. Due to lack of coverage for mental health patient will be seeing during medical appointments as needed. CM referral placed to assist with current needs. Encounters Date Type Department Care Team Description 01/09/2025 Telephone [facility] [address] [place] [address] Charbel Rocha DDS from Last 3 Months Family History Medical History Relation Name Comments breast ca at 60s Father's Sister Prostate cancer Mother's Brother Ovarian cancer at 60s Mother's Sister Relation Name Status Comments Father's Sister Mother's Brother Mother's Sister Social History Tobacco Use Types Packs/Day Years Used Date Smoking Tobacco: Never Smokeless Tobacco: Never Tobacco Cessation:Counseling Given: Not Answered Alcohol Use Standard Drinks/Week Comments Yes 0 (1 standard drink = 0.6 oz pur e alcohol) sometimes drinks-social Alcohol Answer Date Recorded Frequency of Alcohol Consumption Not on file 01/25/2024 Average Number of Drinks Not on file 024 Frequency of Binge Drinking Not on file 12/27 Score 0 01/25/2024 Depression Answer Date Recorded Patient Health Questionnaire-9 Score 8 01/25/2024 Patient Health Questionnaire-9 Score 8 01/25/2024 Last PHQ-9: Questionnaire Data Not on file 1 Housing Stability Answer Date Recorded What is your housing situation today? I do not have housing (Staying with others, in a hotel, in a retirement, living outside on the street, on a [...] Date Recorded Patient Health Questionnaire-2 Score 3 01/25/2024 Comments No Sex and Gender Information Value Date Recorded Sex Assigned at Female 03/23/2023 11:06 AM EST Legal Sex Female 3:14 PM EDT Gender Identity Choose not to disclose 10:41 AM EST Sexual Orientation Straight 03/23/2023 11 :06 AM EST Last Filed Vital Signs Vital Sign Reading Time Taken Comments Blood Pressure 114/68 01/25/2024 1:12 PM EDT Pulse 81 01/25/2024 1:12 PM EDT Temperature 36.8 C (98.3 F) 01/25/2024 1:12 PM EDT Respiratory Rate 20 01/25/2024 1:12 PM EDT Oxygen Saturation 100% 01/25/2024 1:12 PM EDT Inhaled Oxygen Concentration - - Weight 68.5 kg (151 lb) 01/25/2024 1:12 PM EDT Height 175 cm (5' 8.9 ) 01/25/2024 1:12 PM EDT Body Mass Index 22.36 01/25/2024 1:12 PM EDT Plan of Treatment Upcoming Encounters Date Type Department Care Team (Late st Contact Info) Description 02/12/2025 2:30 PM EST Office Visit [facility] [address] [place] [address] Chelle Rojas, GRAHAM [address] [place], [place] [phone] 04/11/2025 1:30 PM EST Office Visit [facility] [address] [place], [place] [phone] Agustina Benavides MD [address] [place], [place] [phone] Health Maintenance Due Date Last Done Comments HIV Screening 1990 Disability Screening 1990 Alcohol/Substance Use Screening 2002 Family Planning (PISQ) 2005 HPV Vaccines (1 - 3-dose series) 2005 Hepatitis C Screening 2008 DTaP/Tdap/Td Vaccines (1 - Tdap) 2009 Hepatitis A Vaccines (1 of 2 - Risk 2-dose series) 2009 Hepatitis B Vaccines (1 of 3 - 19+ 3-dose series) 2009 SDOH Screening 03/23/2024 03/23/2023 Dental Oral Exam 07/12/2024 01/11/2024 Dental Prophylaxis 07/12/2024 01/11/2024 COVID-19 Vaccine (1 - 2023-2 5 season) 2024 Influenza Vaccine (#1) 2024 Dental X-Ray: Bitewings 01/11/2025 01/11/2024 Depression Screening 01/24/2025 01/25/2024, 01/25/2024 Tobacco Screening 01/24/2025 01/25/2024 Pap Smear 05/11/2026 05/11/2023 Dental X-Ray: Full Mouth 01/11/2027 01/11/2024 Cervical Cancer Screening 05/11/2028 HPV/Cotest 05/11/2028 05/11/2023 Zoster Vaccines (1 of 2) 2040 RSV Patients and Patients Aged 60 years or older (1 - 1-dose 75+ series) 2065 HIB Vaccines Aged Out No longer eligi ble based on patient's age to complete this topic IPV Vaccines Aged Out No longer eligi ble based on patient's age to complete this topic Meningococcal B Vaccine Aged Out No l onger eligible based on patient's age to complete this topic Meningococcal Vaccine Aged Out No thais harman eligible based on patient's age to complete this topic Pneumococcal Vaccine: Pediatrics (0 to 5 Years) and At-Risk Patients (6 to 49) Years Aged Out No longer eligible b ased on patient's age to complete this topic RSV under 20 months Aged Out No longe r eligible based on patient's age to complete this topic Rotavirus Vaccines Aged Out No longer eligible based on patient's age to complete this topic Procedures Procedure Name Priority Date/Time Associated Diagnosis Comments PROPHYLAXIS - ADULT Routine 01/11/2024 1 :00 PM EDT Encounter for dental examination and cleaning with abnormal findings INTRAORAL - COMPLETE SERIES OF RADIOGRAPHIC IMAGES Routine 01/11/2024 1:00 PM EDT Encounter for dental examination and cleaning with abnormal findings COMPREHENSIVE ORAL EVALUATION - NEW OR ESTABLISHED PATIENT Routine 01/11/2024 1:00 PM EDT Encounter for dental examination and cleaning with abnormal findings HPV MRNA E6/E7 REFLEX TO HPV 16, 18/45 Routine 05/11/2023 10:00 AM EST PAP SMEAR Routine 05/11/2023 10:00 AM EST Cervical cancer screening from Last 3 Months or Most Recently Relevant to Health Maintenance Results * HPV mRNA E6/E7 w/Reflex to HPV Genotypes 16, 18/45 (05/11/2023 10:00 AM EST) HPV nRNA E6/E7 Not Detected Not Detected [facility] Comment:Methodology: Transcr iption-Mediated AmplificationThis assay detects E6/E7 viral messenger RNA (mRNA) from 14high-risk HPV types (16,18,31,33,35,39,45,51,52,56,58,59,66,68).Cervical sources are required for HPV testing.If a vaginal source from a patient who has had atotal hysterectomy with removal of cervix wassubmitted, please contact the testing laboratoryfor alternative testing options.For additional information, please refer tohttp://education.[employer]/faq/KHL161v4(This link if provided for information/educational purposes only.)THIS TEST WAS PERFORMED AT:[facility] [place] [id number] MONTERROSO MD HPV mRNA E6/E7 [facility] HPV 16 RNA [facility] HPV 18/45 [facility] 05/11/2023 10:0 0 AM EST 05/11/2023 2:00 PM EST Chelle [facility] LAB CYTOLOGY ORDERABLES F inal Result [facility] [address] [place] [phone] * Pap Smear (05/11/2023 10:00 AM EST) Swab Cervix uteri structure / Unknown 05/11/2023 10:00 AM EST 05/11/2023 2:00 PM EST Narrative [facility] - 05/30/2023 2:33 PM EST ----- ------- Name: José Shaffer Age/Sex: 32/F : 1990 Unit#: [id number] Attend Dr: CHELLE ROJAS CNM Re05/11/23 Status: DEP REF Location: HO.HHCLNP Disch: ----- ------- SPEC : [id number] RECD: 05/11/23-1399 STATUS: RADHA RUSS NUM: [id number] CHASE: 05/11/23-[address]: CHELLE ROJAS CNM ENTERED: 05/11/23-1418 SP TYPE: Pap Smr OTHR DR: ORDERED: Pap Smear Interpretation Satisfactory for evaluation. Mild inflammation. Negative for intraepithelial lesion or malignancy. HPV mRNA E6/E7: NOT DETECTED This assay detects E6/E7 viral messenger RNA (mRNA) from 14 high-risk HPV types (16, 18, 31, 33, 35, 39, 45, 51, 52, 56, 58, 59, 66, 68) HPV testing performed by [facility], [place], [place]. See reference laboratory portion of the EMR for entire report. Clinical Information LMP: Unknown date Previous PAP test: Unknown date/findings Material Received ThinPrep-Cervical ----- ------- Signed (signature on file) MEREDITH Fine (ASCP) 05/30/23 1433 ----- ------- END OF REPORT Chelle Rojas CNM LAB CYTOLOGY ORDERABLES F inal Result [facility] [address] [place] [address] [phone] from Last 3 Months or Most Recently Relevant to Health Maintenance Insurance [address] [place] [address] [place] [address] [place] [address] [facility] MEDICAID LIMITED ADULT DENTAL - HSN FULL (MEDICAID) Care Teams Revenue Stamp Cutter Relationship Specialty Start Date End Date Agustina Benavides MD [address] [place] [phone] PCP - General Internal Medicine 04/28/23
[2025-02-04 18:52] VITALS: BP 116/72; PULSE 58; RESP 14; TEMP 36.2; O2SAT 99
[2025-02-04 19:51] VITALS: BP 116/72; PULSE 58; RESP 14; TEMP 36.2; O2SAT 99
[2025-02-04] MEDS: oxyCODONE HCl Immed Release 5 MG TABLET PO (19:51)
== END 2025-02-04 19:54 | disposition home or self-care (01) ==
PROVIDERS: Registered Nurse Emergency; Emergency Provider Emergency Medicine; PCP Student in an Organized Health Care Education/Training Program
DX: N39.0 Urinary tract infection, site not specified (principal); N20.1 Calculus of ureter; R10.9 Unspecified abdominal pain
CPT/HCPCS: 36415; 74176; 80053; 81001; 84702; 85025; 99284

== ENCOUNTER → 2025-02-04 18:19 | Outpatient (BNV) | payer MEDICAID, SELFPAY | PROVIDERS: Emergency Provider Emergency Medicine; PCP Student in an Organized Health Care Education/Training Program; Visit Provider Radiology Diagnostic Radiology | DX: N13.2 Hydronephrosis with renal and ureteral calculous obstruction (principal) | CPT/HCPCS: 74176 ==

== ENCOUNTER 2025-02-12 14:35 | Outpatient (REF) | payer MEDICAID, SELFPAY ==
--- OUTSIDE RECORDS SUMMARY | 2025-02-12 14:30 | XMS_ITS | Encounter Summary ---
Author Organization [employer] Address [address] [facility] [address] [place] [address] Care Team Providers Care Frit Maker Name Role Phone Agustina Benavides MD Primary Care Pro vider Reason for Visit * Reason Comments CHW - Office Visit Encounter Details Date Type Department Care Team ([facility] Contact Info) Description 02/12/2025 2:30 PM EST Office Visit [facility] [address] [place], [place] [phone] Blanca Pascual CN [address] [place] [address] Screening examination for venereal disease (Primary Dx) Social History Tobacco Use Types Packs/Day Years [...] with others, in a hotel, in a nursing home, living outside on the street, on a [...] Health Questionnaire-2 Score 3 01/25/2024 Comments No Intention Date Recorded No desire to become (finding) 1 04/14/2024 Sex and Gender Information Value Date Recorded Sex Assigned at Female 03/23/2023 11:06 AM EST Legal Sex Female 3:14 PM EDT Gender Identity Choose not to disclose 10:41 AM EST Sexual Orientation Straight 03/23/2023 11 :06 AM EST documented as of this encounter Last Filed Vital Signs Vital Sign Reading Time Taken Comments Blood Pressure 120/68 02/12/2025 2:18 PM EST Pulse 75 02/12/2025 2:18 PM EST Temperature 37.4 C (99.3 F) 02/12/2025 2:18 PM EST Respiratory Rate 14 02/12/2025 2:18 PM EST Oxygen Saturation 99% 02/12/2025 2:18 PM EST Inhaled Oxygen Concentration - - Weight - - Height - - Body Mass Index - - documented in this encounter Progress Notes * Blanca Pascual, GRAHAM - 02/12/2025 2:30 PM EST Subjective Patient ID: José Ventura is a 34 y.o. adult who presents for SENSITOMETRIST visit Pap NIL/HPV neg 04/2023. Nexplanon inserted 03/2023. Seen in ER for kidney stone earlier this month. Feeling well now. 1 AMAB partner x 2m, would like urine and serum STI testing today. Happy with implant, amenorrheic.Not planning in the next year. Needs refills on Zovirax ointment and valacylovir for episodic herpes. Review of Systems Genitourinary: Negative for dyspareunia, dysuria, frequency, genital sores, hematuria, menstrual problem, pelvic pain, urgency, vaginal bleeding, vaginal discharge and vaginal pain. No abnormal pap, no abnormal bleeding, no breast pain, no breast mass, no nipple discharge Objective BP 120/68 (BP Location: Left arm, Patient Position: Sitting, BP Cuff Size: Adult) Pulse 75 Temp99.3 ??F (37.4 ??C) (Oral) Resp 14 LMP 02/13/2024 SpO2 99% Physical Exam Constitutional: Appearance: Normal appearance. Skin: Comments: Nexplanon palpable in left arm, site well healed Neurological: Mental Status: She is alert. Psychiatric: Mood and Affect: Mood normal. Behavior: Behavior normal. Assessment/Plan Diagnoses and all orders for this visit: Screening examination for venereal disease - Chlamydia/N. Gonorrhoeae, PCR, Urine - Trichomonas RNA (Urine/Vaginal) - HIV-1/2 Antigen and Antibodies, Fourth Generation, with Reflexes; Future - Syphilis Screen; Future - Hepatitis C Antibody with Reflex to HCV, RNA, Quantitative, Real-Time PCR; Future - Hepatitis B surface antigen, EIA; Future - Hepatitis B Surface Antibody, Qualitative; Future - Hepatitis B Core Antibody, Total; Future Urine and serum labs ordered. Will contact with results. Pelvic exam deferred as asymptomatic. Pap/HPV 2028. Remove implant by 5 years from insertion date, or any time prior to that if desired. Reassured, amenorrhea not dangerous. Oral Valtrex and topical Zovirax prescriptions sent in. Reviewed episodic vs suppressive antiviral therapy. Would like to continue with episodic for now. Other orders - valACYclovir (Valtrex) 500 MG tablet; 1 tablet by mouth twice a day x 3 days, prn outbreak - acyclovir (Zovirax) 5 % ointment; Apply topically 6 (six) times a day. Use for 7 days documented in this encounter Plan of Treatment Upcoming Encounters Date Type Department Care Team (Late st Contact Info) Description 04/11/2025 1:30 PM EST Office Visit [facility] MEDICINE [address] [place] [phone] Agustina Benavides MD [address] [place] [address] Scheduled Orders Name Type Priority Associated Diagnoses Orde r Schedule Trichomonas RNA (Urine/Vaginal) Lab Routine Screening examination for venereal disease Ordered: 02/12/2025 HIV-1/2 Antigen and Antibodies, Fourth Generation, with Reflexes Lab Routine Screening examination for venereal disease Expected: 02/12/2025 (Approximate), Expires: 02/12/2026 Syphilis Screen Lab Routine Screening examination for venereal disease Expected: 02/12/2025 (Approximate), Expires: 02/12/2026 Hepatitis C Antibody with Reflex to HCV, RNA, Quantitative, Real-Time PCR Lab Routine Screening examination for venereal disease Expected: 02/12/2025 (Approximate), Expires: 02/12/2026 Hepatitis B surface antigen, EIA Lab Routine Screening examination for venereal disease Expected: 02/12/2025 (Approximate), Expires: 02/12/2026 Hepatitis B Surface Antibody, Qualitative Lab Routine Screening examination for venereal disease Expected: 02/12/2025 (Approximate), Expires: 02/12/2026 Hepatitis B Core Antibody, Total Lab Routine Screening examination for venereal disease Expected: 02/12/2025 (Approximate), Expires: 02/12/2026 documented as of this encounter Procedures Procedure Name Priority Date/Time Associated Diagnosis Comments CHLAMYDIA/TRICHOMON /NEISSERIA GONORRHOEAE, PCR, URINE Routine 02/12/2025 2:34 PM EST Screening examination for venereal disease documented in this encounter Results * Chlamydia/N. Gonorrhoeae, PCR, Urine (02/12/2025 2:34 PM EST) CT PCR, Urine NOT DETECTED Not Detect. [facility] Comment:A not detected test result does not exclude the possibilityof infection because test results can be affected byimproper specimen collection, concurrent antibiotic therapy,or the number of organisms in the specimen which may bebelow the sensitivity of the test. As with many diagnostictests, results from the Xpert CT/NG assay should beinterpreted in conjunction with other laboratory andclinical data available to the clinician.The Xpert CT/NG assay should not be used for the evaluationof suspected sexual abuse or for other medico-legalindications. Additional testing is recommended in anycircumstance when false positive or false negative resultscould lead to adverse medical, social or psychologicalconsequences. NG PCR, Urine NOT DETECTED Not Detect. [facility] Comment:A not detected test result does not exclude the possibilityof infection because test results can be affected byimproper specimen collection, concurrent antibiotic therapy,or the number of organisms in the specimen which may bebelow the sensitivity of the test. As with many diagnostictests, results from the Xpert CT/NG assay should beinterpreted in conjunction with other laboratory andclinical data available to the clinician.The Xpert CT/NG assay should not be used for the evaluationof suspected sexual abuse or for other medico-legalindications. Additional testing is recommended in anycircumstance when false positive or false negative resultscould lead to adverse medical, social or psychologicalconsequences. Urine (Urine, Random) 02/12/2025 2:34 PM EST 02/12/2025 4:18 PM EST us Blanca Pascual [facility] URINE ORDERABLES Monica valiente Result [facility] [address] [place] [phone] documented in this encounter Visit Diagnoses Diagnosis Screening examination for venereal disease- Primary documented in this encounter Additional Health Concerns Assessment Noted Time PHQ-9 Depression Total Score: 8 01/25/20 24 1:54 PM EDT documented as of this encounter Care Teams Frit Maker Relationship Specialty Start Date End Date Agustina Benavides MD [address] [place] [phone] PCP - General Internal Medicine 04/28/23 documented as of this encounter
[2025-02-12 17:59] LABS: CT PCR Urine NOT DETECTED (Not Detect.); NG PCR Urine NOT DETECTED (Not Detect.)
--- OUTSIDE RECORDS SUMMARY | 2025-02-13 03:00 | XMS_ITS | Encounter Summary ---
Author Organization [employer] Address [address] [place] [address] Care Team Providers Care Roustabout Supervisor Name Role Phone Agustina Benavides MD Primary Care Pro vider Reason for Visit * Reason Onset Date Comments chart prep 02/11/2025 Encounter Details Date Type Department Care Team ([facility] st Contact Info) Description 02/11/2025 Telephone [facility] MED[facility] [address] [place], [place] [phone] Blanca Pascual CNM [address] [place] [phone] chart prep Social History Tobacco Use Types Packs/Day Years [...] with others, in a hotel, in a group home, living outside on the street, on [...] encounter Miscellaneous Notes * Telephone Encounter - Esperanza Silva [place] - 02/11/2025 11:52 AM EST Chart Prep Labs: done Images: not applicable Screenings: HIV screening Vaccines due: Covid Due, Tdap Due, Hep A Due, Hep B Due, and HPV Referrals: Not Applicable Overdue care gaps: Sbirt, SDOH, PHQ9, GAD7, Disability , and Oral Health documented in this encounter Plan of Treatment Upcoming Encounters Date Type Department Care Team (Late st Contact Info) Description 04/11/2025 1:30 PM EST Office Visit [facility] MED[facility] [address] [place] [phone] Agustina Benavides MD [address] [place] [phone] documented as of this encounter Visit Diagnoses Not on filedocumented in this encounter Additional Health Concerns Assessment Noted Time PHQ-9 Depression Total Score: 8 01/25/20 24 1:54 PM EDT documented as of this encounter Care Teams Roustabout Supervisor Relationship Specialty Start Date End Date Agustina Benavides MD [address] [place] [phone] PCP - General Internal Medicine 04/28/23 documented as of this encounter
--- OUTSIDE RECORDS SUMMARY | 2025-02-13 03:00 | XMS_ITS | Encounter Summary ---
Author Organization [employer] Address [address] [facility] 7t [place] [address] Care Team Providers Care Mail Manager Name Role Phone Agustina Benavides MD Primary Care Pro vider Reason for Visit * Reason Onset Date Comments New Patient 01/19/2023 Encounter Details Date Type Department Care Team ([facility] st Contact Info) Description 01/19/[address] [facility] [address] [place], [place] [phone] Mp Waller MD [address] [place] [phone] New Patient Social History Tobacco Use Types [...] PAR Mc Laura called pt to Offer CHAIN MAKER HAND appt. Pt demographics and insurance information were verified. Pt states following medical conditions: No Pt reports taking medications: No Pt given CHAIN MA[employer] HAND appt with Dr. Christensen on 03/23/2023 @ 10:15 pm. Pt will be sent appt reminder card and medical release formand agrees to complete and to return to medical records prior to CHAIN MAKER HAND appt. documented in this encounter Plan of Treatment Upcoming Encounters Date Type Department Care Team (Late st Contact Info) Description 04/11/2025 1:30 PM EST Office Visit [facility] [address] [place], [place] [phone] Agustina Benavides MD [address] [place] [phone] documented as of this encounter Visit Diagnoses Not on filedocumented in this encounter Care Teams Mail Manager Relationship Specialty Start Date End Date Agustina Benavides MD [address] [place] [phone] PCP - General Internal Medicine 04/28/23 documented as of this encounter
--- OUTSIDE RECORDS SUMMARY | 2025-02-13 03:00 | XMS_ITS | Encounter Summary ---
Author Organization [employer] Address [address] [facility] [address] 7t [place] [address] Care Team Providers Care Claims Account Manager Name Role Phone Agustina Benavides MD Primary Care Pro vider Encounter Details Date Type Department Care Team (Late st Contact Info) Description 04/14/2023 Orders Only [facility] [address] [place], [place] [phone] Blanca Pascual, TIMO [address] [place], [place] [phone] Social History Tobacco Use Types Packs/Day Years [...] with others, in a hotel, in a halfway, living outside on the street, on a [...] EDT Gender Identity Choose not to disclose 3 10:41 AM EST Sexual Orientation Straight 03/23/2023 11 :06 AM EST documented as of this encounter Plan of Treatment Upcoming Encounters Date Type Department Care Team ([facility] st Contact Info) Description 04/11/2025 1:30 PM EST Office Visit [facility] [address] [place] [address] [phone] Agustina Benavides MD [address] [place] [address] [phone] documented as of this encounter Procedures Procedure Name Priority Date/Time Associated Diagnosis Comments HPV MRNA E6/E7 REFLEX TO HPV 16, 18/45 Routine 05/11/2023 10:00 AM EST documented in this encounter Results * HPV mRNA E6/E7 w/Reflex to HPV Genotypes 16, 18/45 (05/11/2023 10:00 AM EST) HPV nRNA E6/E7 Not Detected Not Detected [facility] Comment:Methodology: Transcr iption-Mediated AmplificationThis assay detects E6/E7 viral messenger RNA (mRNA) from 14high-risk HPV types (16,18,31,33,35,39,45,51,52,56,58,59,66,68).Cervical sources are required for HPV testing.If a vaginal source from a patient who has had atotal hysterectomy with removal of cervix wassubmitted, please contact the testing laboratoryfor alternative testing options.For additional information, please refer tohttp://education.ProNoxis/faq/PUR066y9(This link if provided for information/educational purposes only.)THIS TEST WAS PERFORMED AT:[employer] [place] [phone] MONTERROSO MD HPV mRNA E6/E7 [facility] HPV 16 RNA [facility] HPV 18/45 RNA [facility] 05/11/2023 10:0 0 AM EST 05/11/2023 2:00 PM EST us Blanca Pascual [facility] CYTOLOGY ORDERABLES F inal Result [facility] [address] [place] [phone] documented in this encounter Visit Diagnoses Not on filedocumented in this encounter Additional Health Concerns Assessment Noted Time PHQ-9 Depression Total Score: 10 023 12:55 PM EST documented as of this encounter Care Teams Claims Account Manager Relationship Specialty Start Date End Date Agustina Benavides MD [address] [place] [phone] PCP - General Internal Medicine 04/28/23 documented as of this encounter
--- OUTSIDE RECORDS SUMMARY | 2025-02-13 03:00 | XMS_ITS | Encounter Summary ---
Author Organization [employer] Address [address] [facility] [address] 7[address] [place] [address] Care Team Providers Care Accounting Software Specialist Name Role Phone Agustina Benavides MD Primary Care Pro vider Encounter Details Date Type Department Care Team (Latest Contact Info) Description 02/12/2025 Travel Social History Tobacco Use Types Packs/Day Years [...] with others, in a hotel, in a senior care, living outside on the street, on a [...] Description 04/11/2025 1:30 PM EST Office Visit [facility] [address] [place] [phone] Agustina Benavides MD [address] [place] [phone] documented as of this encounter Visit Diagnoses Not on filedocumented in this encounter Additional Health Concerns Assessment Noted Time PHQ-9 Depression Total Score: 8 01/25/20 24 1:54 PM EDT documented as of this encounter Care Teams Accounting Software Specialist Relationship Specialty Start Date End Date Agustina Benavides MD [address] [place] [phone] PCP - General Internal Medicine 04/28/23 documented as of this encounter
--- OUTSIDE RECORDS SUMMARY | 2025-02-13 03:00 | XMS_ITS | Clinical Summary ---
Author Organization [employer] Address [address] [facility] [address] 7[address] [place] [address] Care Team Providers Care Blunger Machine Operator Name Role Phone Agustina Benavides MD Primary Care Pro vider Allergies Active Allergy Reactions Criticality Noted Date Comments Sulfamethoxazole-Trimetho prim 03/23/2023 Rash in childhood and adulthood Medications * This document contains information received from the source organization and may not represent a complete record from that organization. multivitamin-ir nc-kszepubc-vfu ic acid (Centrum) chewable tablet Chew 1 tablet in the morning. Active cetirizine (ZyrTEC) 10 MG tablet TAKE 1 TABLET BY MOUTH EVERY DAY 90 tablet 4 Active valACYclovir (Valtrex) 500 MG tablet 1 tablet by mouth twice a day x 3 days, prn outbreak 30 tablet 2 02/12/2025 3:05 PM EST 5 Active acyclovir (Zovirax) 5 % ointment Apply topically 6 (six) times a day. Use for 7 days 30 g 5 Active Active Problems Problem Noted Date Diagnosed Date Vulvar lesion 01/26/2024 PTSD (post-traumatic stress disorder) 01/25/2024 Assessment & Plan (01/25/2024 3:52 PM EDT): PROGRESS NOTE: ID: José is a 33 y.o. White straight-identified choose not to disclose with previous documented hx of Depression and Anxiety services including OP Psychotherapy who presents for [...] in the context of patient moved from [facility],1 year ago, arrived at [place], [place], then on 03/23/23 was transfer to [place], she has been living in half-way with her 5 y/o daughter, financial struggle, lack of social support. PLAN: Behavioral Health Integration Plan Internal Follow up with [facility] Patient Self Plan Patient to utilize skills provided in intervention , Patient to reach out to [facility] team as needed, and Comply with [...] José moved to three months ago from [facility] and is currently living with her daughter in a half-way. Lack of support/network and difficult relationship with her daughter's father are also exacerbating sxs. PLAN: (check all that apply) Behavioral Health Integration Plan Internal Follow up with [facility], Patient Self Plan Patient to utilize skills provided in intervention , Patient to reach out to [facility] team as needed, and Patient to [...] José moved to three months ago from [facility] and is currently living with her daughter in a half-way. Lack of support/network and difficult relationship with her daughter's father are also exacerbating sxs. PLAN: (check all that apply) Behavioral Health Integration Plan Internal Follow up with I, Patient Self Plan Patient to utilize skills provided in intervention , Patient to reach out to [facility] team as needed, and Patient to reach out to [facility] as needed. Due to lack of coverage for mental health patient will be seeing during medical appointments as needed. CM referral placed to assist with current needs. Encounters Date Type Department Care Team Description 02/12/2025 2:30 PM EST Office Visit [facility] [address] [place] [phone] Chelle Rojas CNM Screening examination for venereal disease (Primary Dx) 02/12/2025 Travel 02/11/2025 Telephone [facility] MEDICINE [address] [place], [place] [phone] Chelle Rojas CNM chart prep 02/04/2025 Orders Only [facility] External Provider, [facility] 01/09/2025 Telephone [facility] ADULT DENTAL [address] [place], [place] [phone] Charbel Rocha DDS from Last 3 Months [...] with others, in a hotel, in a half-way, living outside on the street, on a [...] EST Inhaled Oxygen Concentration - - Weight 68.5 kg (151 lb) 01/25/2024 1:12 PM EDT Height 175 cm (5' 8.9 ) 01/25/2024 1:12 PM EDT Body Mass Index 22.36 01/25/2024 1:12 PM EDT Plan of Treatment Upcoming Encounters Date Type Department Care Team (Late st Contact Info) Description 04/11/2025 1:30 PM EST Office Visit [facility] MEDICINE [address] [place], [place] [phone] Agustina Benavides MD [address] [place], [place] [phone] Health Maintenance Due Date Last Done Comments HIV Screening 1990 Disability Screening 1990 Alcohol/Substance Use Screening 2002 HPV Vaccines (1 - 3-dose series) 2005 Hepatitis C Screening 2008 DTaP/Tdap/Td Vaccines (1 - Tdap) 2009 Hepatitis A Vaccines (1 of 2 - Risk 2-dose series) 2009 Hepatitis B Vaccines (1 of 3 - 19+ 3-dose series) 2009 SDOH Screening 03/23/2024 03/23/2023 Dental Oral Exam 07/12/2024 01/11/2024 Dental Prophylaxis 07/12/2024 01/11/2024 COVID-19 Vaccine (1 - 2024-2 6 season) 2024 Influenza Vaccine (#1) 2024 Dental X-Ray: Bitewings 01/11/2025 01/11/2024 Depression Screening 01/24/2025 01/25/2024, 01/25/2024 Family Planning (PISQ) 02/12/2026 02/12/2025 Tobacco Screening 02/12/2026 02/12/2025 Dental X-Ray: Full Mouth 01/11/2027 01/11/2024 Cervical Cancer Screening 05/11/2028 HPV/Cotest 05/11/2028 05/11/2023 Pap Smear 05/11/2028 05/11/2023 Zoster Vaccines (1 of 2) [...] Procedure Name Priority Date/Time Associated Diagnosis Comments CHLAMYDIA/TRICHOMONAS/ NEISSERIA GONORRHOEAE, PCR, URINE Routine 02/12/2025 2:34 PM EST Screening examination for venereal disease CT ABDOMEN PELVIS WO CONTRAST Routine 02/04/2025 7:14 PM EST PROPHYLAXIS - ADULT Routine 01/11/2024 1 :00 [...] Recently Relevant to Health Maintenance Results * Chlamydia/N. Gonorrhoeae, PCR, Urine (02/12/2025 2:34 PM EST) CT PCR, Urine NOT DETECTED Not Detect. [facility] Comment:A not detected test result does [...] NG PCR, Urine NOT DETECTED Not Detect. [facility] Comment:A not detected test result does [...] PM EST 02/12/2025 4:18 PM EST us Chelle Rojas [facility] URINE ORDERABLES Monica valiente Result [facility] [address] [place] [phone] * CT Abdomen Pelvis w/o Contrast (02/04/2025 7:14 PM EST) Anatomical Region Laterality Modality Body, Pelvis, Abdomen Computed T omography 02/04/2025 7:14 PM EST Narrative 02/04/2025 7:[address] [address] [address] Scan Report Signed Patient: José Shaffer MR #: [id number] : 1990 Acct:[id number] Age/Sex: 34 / F ADM Date: 02/04/25 Loc: HO.ED Attending Dr: Ordering Physician: Dio Can MD Date of Service: 02/04/25 Procedure(s): CT abdomen pelvis wo IV con Accession Number(s): [id number] cc: Dio Can MD; Agustina Benavides MD Report Number: [id number]: Total DLP = 543.00 mGy-cm Reason for Exam: left flank pain, hx of stones CLINICAL HISTORY: left flank pain, hx of stones CT abdomen and pelvis without contrast Comparison: None provided Findings: The lung bases are clear. The liver, spleen, pancreas, bilateral adrenal glands and right kidney without acute abnormality or focal lesions. Gallbladder nondistended. Tiny radiopaque gallstone within the gallbladder lumen. There is a nearly 4 mm stone in the distal left ureter a few cm proximal to the left ureterovesical junction, axial image 68, series 3, coronal image 39. This results in mild left-sided hydroureteronephrosis. Few additional punctate nonobstructive bilateral intrarenal stones are noted. The stomach and bowel loops are not dilated. There are no focal colonic lesions or pneumatosis. There is no mesenteric inflammation. The appendix is normal. No free fluid, collections or free air. The aorta normal in caliber No abdominopelvic lymphadenopathy. The bladder is normal. Uterus slightly prominent although without gross focal lesions. There are no adnexal lesions. There is no acute soft tissue or skeletal abnormality in the abdomen or pelvis. There are no skeletal lesions. IMPRESSION: A 4 mm stone in the distal left ureter, resulting in mild left-sided hydroureteronephrosis. The examination is otherwise unremarkable. This document has been electronically signed by: Luis Pichardo MD on 02/04/2025 19:14:56 Dictated By: Luis Pichardo MD Signed By: <Electronically signed by Luis Pichardo MD in OV> 02/04/251915 DD/ 13 TD/TT: 02/04/251913 Aligning Checker: Procedure Note Donotuseinterpreter, Image - 02/04/[address] [address] [address] Scan Report Signed Patient: José Shaffer CMR #: [id number] : 1990Acct:[id number] Age/Sex: 34 / FADM Date: 02/04/25 Loc: HO.ED Attending Dr: Ordering Physician: Dio Can MD Date of Service: 02/04/25 Procedure(s): CT abdomen pelvis wo IV con Accession Number(s): [id number] cc: Dio Can MD; Agustina Benavides MD Report Number: [id number]: Total DLP = 543.00 mGy-cm Reason for Exam: left flank pain, hx of stones CLINICAL HISTORY: left flank pain, hx of stones CT abdomen and pelvis without contrast Comparison: None provided Findings: The lung bases are clear. The liver, spleen, pancreas, bilateral adrenal glands and right kidney without acute abnormality or focal lesions. Gallbladder nondistended. Tiny radiopaque gallstone within the gallbladder lumen. There is a nearly 4 mm stone in the distal left ureter a few cm proximal to the left ureterovesical junction, axial image 68, series 3, coronal image 39. This results in mild left-sided hydroureteronephrosis. Few additional punctate nonobstructive bilateral intrarenal stones are noted. The stomach and bowel loops are not dilated. There are no focal colonic lesions or pneumatosis. There is no mesenteric inflammation. The appendix is normal. No free fluid, collections or free air. The aorta normal in caliber No abdominopelvic lymphadenopathy. The bladder is normal. Uterus slightly prominent although without gross focal lesions. There are no adnexal lesions. There is no acute soft tissue or skeletal abnormality in the abdomen or pelvis. There are no skeletal lesions. IMPRESSION: A 4 mm stone in the distal left ureter, resulting in mild left-sided hydroureteronephrosis. The examination is otherwise unremarkable. This document has been electronically signed by: Luis Pichardo MD on 02/04/2025 19:14:56 Dictated By: Luis Pichardo MD Signed By: <Electronically signed by Luis Pichardo MD in OV> 02/04/251915 DD/ 13 TD/TT: 02/04/251913 Aligning Checker: [facility] External Provider IMG CT PROCEDURES Final Result * HPV mRNA E6/E7 w/Reflex to HPV Genotypes 16, 18/45 (05/11/2023 10:00 AM EST) HPV nRNA E6/E7 Not Detected Not Detected [facility] Comment:Methodology: Transcr iption-Mediated AmplificationThis assay detects E6/E7 viral messenger RNA (mRNA) from 14high-risk HPV types (16,18,31,33,35,39,45,51,52,56,58,59,66,68).Cervical sources are required for HPV testing.If a vaginal source from a patient who has had atotal hysterectomy with removal of cervix wassubmitted, please contact the testing laboratoryfor alternative testing options.For additional information, please refer tohttp://education.ClearStar/faq/ZNJ374m6(This link if provided for information/educational purposes only.)THIS TEST WAS PERFORMED AT:[employer] [place] [phone] MONTERROSO MD HPV mRNA E6/E7 [facility] HPV 16 RNA [facility] HPV 18/45 RNA [facility] 05/11/2023 10:0 0 AM EST 05/11/2023 2:00 PM EST Chelle Rojas [facility] CYTOLOGY ORDERABLES F inal Result [facility] [address] [place] [phone] * Pap Smear (05/11/2023 10:00 AM EST) Swab Cervix uteri structure / Unknown 05/11/2023 10:00 AM EST 05/11/2023 2:00 PM EST Aleksandr [facility] - 05/30/2023 2:33 PM EST ----- ------- Name: Cassie Shafferpaul Thomas Age/Sex: 32/F : 1990 Unit#: [id number] Attend Dr: CHELLE ROJAS CNM Re05/11/23 Status: DEP [facility] ----- ------- SPEC : [id number] RECD: 05/11/23-1400 STATUS: RADHA RUSS NUM: [id number] CHASE: 05/11/23-[address]: CHELLE ROJAS CNM ENTERED: 05/11/23-1419 SP TYPE: Pap Smr FAUSTINO DR: ORDERED: Pap Smear Interpretation Satisfactory for evaluation. Mild inflammation. Negative for intraepithelial lesion or malignancy. HPV mRNA E6/E7: NOT DETECTED This assay detects E6/E7 viral messenger RNA (mRNA) from 14 high-risk HPV types (16, 18, 31, 33, 35, 39, 45, 51, 52, 56, 58, 59, 66, 68) HPV testing performed by [employer], [place], [place]. See reference laboratory portion of the EMR for entire report. Clinical Information LMP: Unknown date Previous PAP test: Unknown date/findings Material Received ThinPrep-Cervical ----- ------- Signed (signature on file) MEREDITH Fine ([facility]) 05/30/23 1433 ----- ------- END OF REPORT Chelle Rojas [facility] CYTOLOGY ORDERABLES F inal Result [facility] [address] [place] [phone] from Last 3 Months or Most Recently Relevant to Health Maintenance Insurance [employer] LIMITED [facility] FULL DENTAL-[facility] MEDICAID LIMITED ADULT DENTAL - [facility] FULL (MEDICAID) Care Teams Blunger Machine Operator Relationship Specialty Start Date End Date Agustina Benavides MD [address] [place] [phone] PCP - General Internal Medicine 04/28/23
[2025-02-13 09:04] LABS: HBS Num1 8.09 mIU/mL (0-7.99); HBc Num1 0.08 S/CO (0.00-0.79); HBsAGNum1 0.46 S/CO (0.00-0.99); HIV Num 1 0.07 S/CO (0.00-0.99); Hepatitis B Surface Antigen Negative (Negative); ~HepC Num1 0.15 S/CO (0.00-0.79); ~Hepatitis C Antibody Nonreactive (Nonreactive)
[2025-02-13 09:14] LABS: Syphilis Screen Nonreactive (Nonreactive)
[2025-02-13 10:44] LABS: HBS Num2 7.35 mIU/mL (0-7.99); HBS Num3 7.02 mIU/mL (0-7.99); ~Hepatitis B Surface Antibody NONREACTIVE (Nonreactive)
== END 2025-02-12 14:36 | disposition home or self-care (01) ==
LOC: HO.HHCL 14:35
PROVIDERS: PCP Student in an Organized Health Care Education/Training Program; Visit Provider Advanced Practice Midwife
DX: Z11.59 Encounter for screening for other viral diseases (principal); Z11.4 Encounter for screening for human immunodeficiency virus [HIV]; Z20.2 Contact with and (suspected) exposure to infections with a predominantly sexual mode of transmission
CPT/HCPCS: 36415; 86704; 86706; 86780; 86803; 87340; 87389; 87491; 87591; 87661